=== PATIENT | male | born 1985 | race Caucasian/White ===

== ENCOUNTER 2016-03-14 00:28 | Emergency (ER) | payer MEDICAID, OTHER ==
[~2016-03-14 00:28] MED LIST: AMBI10TA PO; ATIV1TAB7 PO; CELE20TA PO; DOCU10CA PO; HYDR100C PO; LIBRIUM PO; OLAN2.5T PO; OMEP10CASR PO; PAXI20TA3 PO; PROZ40CA PO; SERO1TAB PO; TRAZ100T4 PO; VIST50CA PO; XANA1TAB2 PO; no home medications
[2016-03-14] MEDS ORDERED: IBUPROFEN 600 MG TAB As Ordered ONE (01:02)
[2016-03-14] MEDS ORDERED: PENICILLIN V POTASSIUM 500 MG TAB As Ordered ONE (01:11)
--- NOTE | 2016-03-14 01:28 | EDDOCDS ---
Nurse's Notes [facility] Name: Luis Prieto Age: 30 yrs Sex: Male : 1985 Arrival Date: 03/14/2016 Time: 00:28 Bed 6 Private MD: Diagnosis: Disturbances in tooth formation;Cracked tooth;Pain in arm, unspecified Presentation: 03/14 00:34 Presenting complaint: Patient states: left jaw and left cheek pain that started 3 days dsf ago. pt states he does have a cracked tooth. Pt thinks he has an infection there. Pt also c/o right upper arm pain while ROM. Adult Sepsis Screening: The patient does not have new or worsening altered mentation. Patient's respiratory rate is less than 22. Systolic blood pressure is greater than 100. Patient has a qSOFA score of 0- Negative Sepsis Screen. Suicide/Homicide risk assessment- the patient denies having any suicidal and/or homicidal ideations and does not present with any other emotional, behavioral or mental health complaints. Status: Patient is not a mandate retail service merchandiser or dependent. Transition of care: patient was not received from another setting of care. 00:34 Acuity: ROGERIO Level 4 dsf 00:34 Method Of Arrival: Walkin/Carried/Asstd dsf Triage Assessment: 00:38 General: Appears in no apparent distress, Behavior is appropriate for age, cooperative. dsf Pain: Location: left cheek and left jaw Pain currently is 9 out of 10 on a pain scale. Quality of pain is described as sharp, throbbing. HIV screening NA for this visit Offered previously. EENT: Reports pain in left cheek and left jaw. Historical: - Allergies: Tramadol HCl (Headaches); trazodone (agitated ); - Home Meds: 1. Klonopin 0.5 mg Oral tab 1 tab as needed (Last dose: 03/13/2016) 2. Zoloft 100 mg Oral tab 1 tab once daily (Last dose: 03/13/2016) 3. Seroquel 100 mg Oral tab 1 tab daily has not taken in a week - PMHx: Anxiety; Depression; agorophobia; - PSHx: none; - Social history: Smoking status: Patient uses tobacco products, current some day smoker. No barriers to communication noted, The patient speaks fluent Faroese, Speaks appropriately for age. - Family history: Not pertinent. - : The pt / caregiver states he / she is not on anticoagulants. Home medication list is obtained from the patient. - Exposure Risk Screening:: None identified. Screenin:25 Screening information is obtained from the patient. Fall risk: No risks identified. ko2 Assistance ADL's: requires no assistance with activities of daily living. Abuse/DV Screen: The patient / caregiver reports he/she is: not in a situation that causes fear, pain or injury. Nutritional screening: No deficits noted. Advance Directives: Currently, there is no health care proxy. There is no active DNR order. There is no living will. There is no Power of Bending Shed Worker. home support is adequate. Assessment: 00:50 General: Appears uncomfortable, Behavior is appropriate for age, cooperative. Pain: ko2 Location: face and left jaw and left cheek Pain currently is 10 out of 10 on a pain scale. Neurological: Level of Consciousness is awake, alert. Respiratory: Airway is patent Respiratory effort is even, unlabored, Respiratory pattern is regular, symmetrical. Derm: Skin is normal. Vital Signs: 00:38 BP 122 / 69; Pulse 87; Resp 20; Temp 98.7(O); Pulse Ox 98% on R/A; Weight 106.59 kg dsf (R); Height 5 ft. 11 in. (180.34 cm); Pain 9/10; 00:38 Body Mass Index 32.78 (106.59 kg, 180.34 cm) dsf Vitals: 00:38 Log In Time: March 14, 2016 at 00:30. dsf ED Course: 00:29 Patient visited by Reanna Hein Reg. hs2 00:29 Patient moved to Waiting hs2 00:35 Triage Initiated dsf 00:43 Patient moved to I4 / M4 ld5 00:45 Valeria Mckeon,LANDRY is Primary Nurse. ld5 00:45 Patient moved to Pre RCE ld5 00:45 Patient moved to 6 ld5 00:46 Fabiola Jaffe MD is Attending Physician. fg 00:46 Patient visited by Fabiola Jaffe MD. fg 00:58 [facility] is Referral Physician. fg 01:21 [facility] [place] [place] Payment Agreement was scanned into [employer] and attached to record. pm4 01:26 The patient / caregiver is instructed regarding the plan of care and ED course. ko2 01:26 No IV's were initiated during this patient's visit. No procedures done that require ko2 assistance. Administered Medications: 01:00 Drug: Penicillin VK 500 mg [penicillin V potassium 250 mg tablet (2 tabs)] Route: PO; ko2 01:00 Drug: Ibuprofen 600 mg [ibuprofen 600 mg tablet (1 tabs)] Route: PO; ko2 Order Results: There are currently no results for this order. Outcome: 00:59 Discharge ordered by Provider. fg 01:26 Discharge Assessment: Patient awake, alert and oriented x 3. No cognitive and/or ko2 functional deficits noted. Patient verbalized understanding of disposition instructions. patient administered narcotics - no. The following High Risk Discharge criteria are identified: None. Discharged to home ambulatory, via medicaid cab. Condition: stable. Discharge instructions given to patient, Instructed on discharge instructions, follow up and referral plans. medication usage, Demonstrated understanding of instructions, medications, Pt was receptive of discharge instructions/ teaching. Prescriptions given X 2. No special radiology studies were completed. Property sent home with patient. 01:27 Patient left the ED. ko2 Signatures: Emily Boogie,RN RN ld5 Nasreen ContrerasRN RN Valeria StoutRN RN ko2 Fabiola Jaffe MD MD fg Stanton, Hillary, Reg Reg hs2 Adam Friedman, Reg Reg pm4 MTDD
--- NOTE | 2016-03-14 01:28 | EDDOCDS ---
Physician Documentation [facility] Name: Luis Prieto Age: 30 yrs Sex: Male : 1985 Arrival Date: 03/14/2016 Time: 00:28 Bed 6 Private MD: Disposition: 03/14/16 00:59 Discharged to Home/Self Care. Impression: Disturbances in tooth formation, Cracked tooth, Pain in arm, unspecified. - Condition is Stable. - Prescriptions for Ibuprofen 600 mg Oral Tablet - take 1 tablet by ORAL route every 6-8 hours As needed take with food; 20 tablet. penicillin V potassium 500 mg Oral Tablet - take 1 tablet by ORAL route 4 times per day for 10 days; 40 tablet. - Medication Reconciliation, Local Pharmacy Hours form. - [facility] up: [facility]; When: Call to arrange an appointment; Reason: Continuance of care. - Problem is new. - Symptoms have improved. Historical: - Allergies: Tramadol HCl (Headaches); trazodone (agitated ); - Home Meds: 1. Klonopin 0.5 mg Oral tab 1 tab as needed (Last dose: 03/13/2016) 2. Zoloft 100 mg Oral tab 1 tab once daily (Last dose: 03/13/2016) 3. Seroquel 100 mg Oral tab 1 tab daily has not taken in a week - PMHx: Anxiety; Depression; agorophobia; - PSHx: none; - Social history: Smoking status: Patient uses tobacco products, current some day smoker. No barriers to communication noted, The patient speaks fluent Latvian, Speaks appropriately for age. - Family history: Not pertinent. - : The pt / caregiver states he / she is not on anticoagulants. Home medication list is obtained from the patient. - Exposure Risk Screening:: None identified. Vital Signs: 03/14 00:38 BP 122 / 69; Pulse 87; Resp 20; Temp 98.7(O); Pulse Ox 98% on R/A; Weight 106.59 kg / dsf 234.99 lbs (R); Height 5 ft. 11 in. (180.34 cm); Pain 9/10; 00:38 Body Mass Index 32.78 (106.59 kg, 180.34 cm) dsf MDM: 00:58 Penicillin VK 500 mg PO once ordered. fg 00:58 Ibuprofen 600 mg PO once ordered. fg 01:11 Financial registration complete. pm4 01:21 [facility] Payment Agreement was scanned into [employer] and attached to record. pm4 Administered Medications: 01:00 Drug: Penicillin VK 500 mg [penicillin V potassium 250 mg tablet (2 tabs)] Route: PO; ko2 01:00 Drug: Ibuprofen 600 mg [ibuprofen 600 mg tablet (1 tabs)] Route: PO; ko2 Signatures: Nasreen Contreras RN RN dsf Valeria Mckeon RN RN ko2 Fabiola Jaffe MD MD fg Adam Friedman, Reg Reg pm4 The chart was reviewed and I authenticate all verbal orders and agree with the evaluation and treatment provided.Attachments: 01:21 [facility] Payment Agreement pm4 MTDD
[2016-03-14] MEDS ORDERED: MORPHINE 2 MG/ML 1ML SYRINGE As Ordered ONE (03:42)
--- NOTE | 2016-03-16 02:28 | EDDOCDS ---
Physician Documentation [facility] Name: Luis Prieto Age: 30 yrs Sex: Male : 1985 Arrival Date: 03/14/2016 Time: 00:28 Bed 6 Private MD: Disposition: 03/14/16 00:59 Discharged to Home/Self Care. Impression: Disturbances in tooth formation, Cracked tooth, Pain in arm, unspecified. - Condition is Stable. - Prescriptions for Ibuprofen 600 mg Oral Tablet - take 1 tablet by ORAL route every 6-8 hours As needed take with food; 20 tablet. penicillin V potassium 500 mg Oral Tablet - take 1 tablet by ORAL route 4 times per day for 10 days; 40 tablet. - Medication Reconciliation, Local Pharmacy Hours form. - Follow up: [facility]; When: Call to arrange an appointment; Reason: Continuance of care. - Problem is new. - Symptoms have improved. Historical: - Allergies: Tramadol HCl (Headaches); trazodone (agitated ); - Home Meds: 1. Klonopin 0.5 mg Oral tab 1 tab as needed (Last dose: 03/13/2016) 2. Zoloft 100 mg Oral tab 1 tab once daily (Last dose: 03/13/2016) 3. Seroquel 100 mg Oral tab 1 tab daily has not taken in a week - PMHx: Anxiety; Depression; agorophobia; - PSHx: none; - Social history: Smoking status: Patient uses tobacco products, current some day smoker. No barriers to communication noted, The patient speaks fluent Faroese, Speaks appropriately for age. - Family history: Not pertinent. - : The pt / caregiver states he / she is not on anticoagulants. Home medication list is obtained from the patient. - Exposure Risk Screening:: None identified. Vital Signs: 03/14 00:38 BP 122 / 69; Pulse 87; Resp 20; Temp 98.7(O); Pulse Ox 98% on R/A; Weight 106.59 kg / dsf 234.99 lbs (R); Height 5 ft. 11 in. (180.34 cm); Pain 9/10; 00:38 Body Mass Index 32.78 (106.59 kg, 180.34 cm) dsf MDM: 00:58 Penicillin VK 500 mg PO once ordered. fg 00:58 Ibuprofen 600 mg PO once ordered. fg 01:11 Financial registration complete. pm4 01:21 [facility] Payment Agreement was scanned into [employer] and attached to record. pm4 03/15 12:41 T-Sheet-- Draft Copy was scanned into [employer] and attached to record. gb Administered Medications: 03/14 01:00 Drug: Penicillin VK 500 mg [penicillin V potassium 250 mg tablet (2 tabs)] Route: PO; ko2 01:00 Drug: Ibuprofen 600 mg [ibuprofen 600 mg tablet (1 tabs)] Route: PO; ko2 Signatures: Ada Kidd, Reg Reg gb Nasreen ContrerasRN RN dsf Valeria Mckeon RN RN ko2 Fabiola Jaffe MD MD Adam Friedman, Reg Reg pm4 The chart was reviewed and I authenticate all verbal orders and agree with the evaluation and treatment provided.Attachments: 01:21 [facility] Payment Agreement pm4 03/15 12:41 T-Sheet-- Draft Copy gb Chart Complete MTDD
--- NOTE | 2016-03-16 02:28 | EDDOCDS ---
Nurse's Notes [facility] Name: Luis Prieto Age: 30 yrs Sex: Male : 1985 Arrival Date: 03/14/2016 Time: 00:28 Bed 6 Private MD: Diagnosis: Disturbances in tooth formation;Cracked tooth;Pain in arm, unspecified Presentation: 03/14 00:34 Presenting complaint: Patient states: left jaw and left cheek pain that started 3 days dsf ago. pt states he does have a cracked tooth. Pt thinks he has an infection there. Pt also c/o right upper arm pain while ROM. Adult Sepsis Screening: The patient does not have new or worsening altered mentation. Patient's respiratory rate is less than 22. Systolic blood pressure is greater than 100. Patient has a qSOFA score of 0- Negative Sepsis Screen. Suicide/Homicide risk assessment- the patient denies having any suicidal and/or homicidal ideations and does not present with any other emotional, behavioral or mental health complaints. Status: Patient is not a manager support services or dependent. Transition of care: patient was not received from another setting of care. 00:34 Acuity: ROGERIO Level 4 dsf 00:34 Method Of Arrival: Walkin/Carried/Asstd dsf Triage Assessment: 00:38 General: Appears in no apparent distress, Behavior is appropriate for age, cooperative. dsf Pain: Location: left cheek and left jaw Pain currently is 9 out of 10 on a pain scale. Quality of pain is described as sharp, throbbing. HIV screening NA for this visit Offered previously. EENT: Reports pain in left cheek and left jaw. Historical: - Allergies: Tramadol HCl (Headaches); trazodone (agitated ); - Home Meds: 1. Klonopin 0.5 mg Oral tab 1 tab as needed (Last dose: 03/13/2016) 2. Zoloft 100 mg Oral tab 1 tab once daily (Last dose: 03/13/2016) 3. Seroquel 100 mg Oral tab 1 tab daily has not taken in a week - PMHx: Anxiety; Depression; agorophobia; - PSHx: none; - Social history: Smoking status: Patient uses tobacco products, current some day smoker. No barriers to communication noted, The patient speaks fluent Burmese, Speaks appropriately for age. - Family history: Not pertinent. - : The pt / caregiver states he / she is not on anticoagulants. Home medication list is obtained from the patient. - Exposure Risk Screening:: None identified. Screenin:25 Screening information is obtained from the patient. Fall risk: No risks identified. ko2 Assistance ADL's: requires no assistance with activities of daily living. Abuse/DV Screen: The patient / caregiver reports he/she is: not in a situation that causes fear, pain or injury. Nutritional screening: No deficits noted. Advance Directives: Currently, there is no health care proxy. There is no active DNR order. There is no living will. There is no Power of Die Mounter. home support is adequate. Assessment: 00:50 General: Appears uncomfortable, Behavior is appropriate for age, cooperative. Pain: ko2 Location: face and left jaw and left cheek Pain currently is 10 out of 10 on a pain scale. Neurological: Level of Consciousness is awake, alert. Respiratory: Airway is patent Respiratory effort is even, unlabored, Respiratory pattern is regular, symmetrical. Derm: Skin is normal. Vital Signs: 00:38 BP 122 / 69; Pulse 87; Resp 20; Temp 98.7(O); Pulse Ox 98% on R/A; Weight 106.59 kg dsf (R); Height 5 ft. 11 in. (180.34 cm); Pain 9/10; 00:38 Body Mass Index 32.78 (106.59 kg, 180.34 cm) dsf Vitals: 00:38 Log In Time: March 14, 2016 at 00:30. dsf ED Course: 00:29 Patient visited by Reanna Hein Reg. hs2 00:29 Patient moved to Waiting hs2 00:35 Triage Initiated dsf 00:43 Patient moved to I4 / M4 ld5 00:45 Valeria Mckeon,LANDRY is Primary Nurse. ld5 00:45 Patient moved to Pre RCE ld5 00:45 Patient moved to 6 ld5 00:46 Fabiola Jaffe MD is Attending Physician. fg 00:46 Patient visited by Fabiola Jaffe MD. fg 00:58 [facility] is Referral Physician. fg 01:21 [facility] [place] Payment Agreement was scanned into [employer] and attached to record. pm4 01:26 The patient / caregiver is instructed regarding the plan of care and ED course. ko2 01:26 No IV's were initiated during this patient's visit. No procedures done that require ko2 assistance. 03/15 12:41 T-Sheet-- Draft Copy was scanned into [employer] and attached to record. gb Administered Medications: 03/14 01:00 Drug: Penicillin VK 500 mg [penicillin V potassium 250 mg tablet (2 tabs)] Route: PO; ko2 01:00 Drug: Ibuprofen 600 mg [ibuprofen 600 mg tablet (1 tabs)] Route: PO; ko2 Order Results: There are currently no results for this order. Outcome: 00:59 Discharge ordered by Provider. fg 01:26 Discharge Assessment: Patient awake, alert and oriented x 3. No cognitive and/or ko2 functional deficits noted. Patient verbalized understanding of disposition instructions. patient administered narcotics - no. The following High Risk Discharge criteria are identified: None. Discharged to home ambulatory, via medicaid cab. Condition: stable. Discharge instructions given to patient, Instructed on discharge instructions, follow up and referral plans. medication usage, Demonstrated understanding of instructions, medications, Pt was receptive of discharge instructions/ teaching. Prescriptions given X 2. No special radiology studies were completed. Property sent home with patient. 01:27 Patient left the ED. ko2 Signatures: Ada Kidd, Reg Reg gb Emily Boogie,RN RN ld5 Nasreen Contreras,ALNDRY RN Valeria Stout RN RN ko2 Fabiola Jaffe MD MD Reanna Hein, Reg Reg hs2 Adam Friedman, Reg Reg pm4 Chart Complete MTDD
--- NOTE | 2016-03-16 02:28 | EDDOCDS ---
Physician Documentation [facility] Name: Luis Prieto Age: 30 yrs Sex: Male : 1985 Arrival Date: 03/14/2016 Time: 00:28 Bed 6 Private MD: Disposition: 03/14/16 00:59 Discharged to Home/Self Care. Impression: Disturbances in tooth formation, Cracked tooth, Pain in arm, unspecified. - Condition is Stable. - Prescriptions for Ibuprofen 600 mg Oral Tablet - take 1 tablet by ORAL route every 6-8 hours As needed take with food; 20 tablet. penicillin V potassium 500 mg Oral Tablet - take 1 tablet by ORAL route 4 times per day for 10 days; 40 tablet. - Medication Reconciliation, Local Pharmacy Hours form. - Follow up: [facility]; When: Call to arrange an appointment; Reason: Continuance of care. - Problem is new. - Symptoms have improved. Historical: - Allergies: Tramadol HCl (Headaches); trazodone (agitated ); - Home Meds: 1. Klonopin 0.5 mg Oral tab 1 tab as needed (Last dose: 03/13/2016) 2. Zoloft 100 mg Oral tab 1 tab once daily (Last dose: 03/13/2016) 3. Seroquel 100 mg Oral tab 1 tab daily has not taken in a week - PMHx: Anxiety; Depression; agorophobia; - PSHx: none; - Social history: Smoking status: Patient uses tobacco products, current some day smoker. No barriers to communication noted, The patient speaks fluent Czech, Speaks appropriately for age. - Family history: Not pertinent. - : The pt / caregiver states he / she is not on anticoagulants. Home medication list is obtained from the patient. - Exposure Risk Screening:: None identified. Vital Signs: 03/14 00:38 BP 122 / 69; Pulse 87; Resp 20; Temp 98.7(O); Pulse Ox 98% on R/A; Weight 106.59 kg / dsf 234.99 lbs (R); Height 5 ft. 11 in. (180.34 cm); Pain 9/10; 00:38 Body Mass Index 32.78 (106.59 kg, 180.34 cm) dsf MDM: 00:58 Penicillin VK 500 mg PO once ordered. fg 00:58 Ibuprofen 600 mg PO once ordered. fg 01:11 Financial registration complete. pm4 01:21 [facility] Payment Agreement was scanned into [employer] and attached to record. pm4 03/15 12:41 T-Sheet-- Draft Copy was scanned into [employer] and attached to record. gb Administered Medications: 03/14 01:00 Drug: Penicillin VK 500 mg [penicillin V potassium 250 mg tablet (2 tabs)] Route: PO; ko2 01:00 Drug: Ibuprofen 600 mg [ibuprofen 600 mg tablet (1 tabs)] Route: PO; ko2 Signatures: Ada Kidd, Reg Reg gb Nasreen ContrerasRN RN dsf Valeria Mckeon RN RN ko2 Fabiola Jaffe MD MD Adam Friedman, Reg Reg pm4 The chart was reviewed and I authenticate all verbal orders and agree with the evaluation and treatment provided.Attachments: 01:21 [facility] Payment Agreement pm4 03/15 12:41 T-Sheet-- Draft Copy gb Chart Complete MTDD
== END 2016-03-14 01:27 | disposition home or self-care (01) ==
LOC: M ED 00:28
DX: K03.81 Cracked tooth (principal); K08.9 Disorder of teeth and supporting structures, unspecified; F41.9 Anxiety disorder, unspecified; F32.9 Major depressive disorder, single episode, unspecified; F40.00 Agoraphobia, unspecified; F17.210 Nicotine dependence, cigarettes, uncomplicated; Z79.899 Other long term (current) drug therapy; Z88.8 Allergy status to other drugs, medicaments and biological substances

== ENCOUNTER 2016-04-02 20:04 | Emergency (ER) | payer OTHER ==
--- NOTE | 2016-04-02 20:50 | REPUSA ---
Clinical history: Pain. Findings: Real-time ultrasound imaging of the testicles and scrotum was performed. The right testicle measures 3.9 x 2.4 x 3.2 cm. The left testicle measures 3.9 x 2.5 I 3.1 cm. The testicles demonstrat e normal echo texture and echogenicity. Normal color Doppler flow and arterial waveforms are seen uday aterally. No fluid collections are seen. Impression: Unremarkable ultrasound examination of the testicles.
[2016-04-02] MEDS ORDERED: NAPROXEN 250 MG TAB As Ordered ONE (21:44)
[2016-04-02] MEDS ORDERED: MORPHINE 4 MG/ML 1ML SYRINGE As Ordered ONE (22:29)
--- NOTE | 2016-04-02 23:40 | REPUSA ---
CT of the abdomen and pelvis without contrast Clinical statement: Pain. Technique: Multiple axial CT images were obtained from the base of the lungs to the floor of the pelv is utilizing 5 mm axial slices without administration of contrast. Coronal and sagittal reconstructio ns were also obtained. Comparison: 12/09/2012. Findings: Chest: The visualized lung bases are clear. Abdomen: The kidneys are normal in size bilaterally. There is no evidence of hydronephrosis or nephro lithiasis. The liver, spleen, pancreas, gallbladder and adrenal glands are unremarkable. The aorta de monstrates normal caliber and contour. There is no abdominal lymphadenopathy or ascites. Pelvis: The bowel is unremarkable, with no obstructive or inflammatory changes. The appendix is juan l. The urinary bladder is within normal limits. There is no pelvic lymphadenopathy or ascites. The ot her pelvic structures appear unremarkable. Bones: There are no suspicious osseous abnormalities seen. Impression: Unremarkable CT examination of the abdomen and pelvis.
--- NOTE | 2016-04-03 00:15 | EDDOCDS ---
Nurse's Notes [facility] Name: Luis Prieto Age: 30 yrs Sex: Male : 1985 Arrival Date: 04/02/2016 Time: 20:04 Bed I4 / M4 Private MD: Marcela Harris S Diagnosis: Pelvic and perineal pain-Left sided;Pain in left foot-plantar faciitis Presentation: 04/02 20:12 Presenting complaint: Patient states: Testicular pain for 2 weeks. noticed swelling 4 rs3 days ago. pain getting worse progressively. some relief with heat application. L ankle pain for 2 days. no known injury. Adult Sepsis Screening: The patient does not have new or worsening altered mentation. Patient's respiratory rate is less than 22. Systolic blood pressure is greater than 100. Patient has a qSOFA score of 0- Negative Sepsis Screen. Suicide/Homicide risk assessment- the patient denies having any suicidal and/or homicidal ideations and does not present with any other emotional, behavioral or mental health complaints. Status: Patient is not a 911 emergency services dispatcher or dependent. Transition of care: patient was not received from another setting of care. 20:12 Acuity: ROGERIO Level 3 rs3 20:12 Method Of Arrival: Walkin/Carried/Asstd rs3 Triage Assessment: 20:16 General: Appears in no apparent distress. Pain: Location: pelvis. Pt Declines HIV rs3 testing. Historical: - Allergies: Tramadol HCl (Headaches); Trazodone (agitated); - Home Meds: 1. Klonopin 0.5 mg Oral tab 1 tab as needed 2. Geodon 20 mg oral cap 1 cap nightly - PMHx: agorophobia; Anxiety; Depression; - PSHx: none; - Social history: Smoking status: Patient states former smoker of tobacco. No barriers to communication noted, The patient speaks fluent Tajik. - Family history: Not pertinent. - : The pt / caregiver states he / she is not on anticoagulants. Home medication list is obtained from. - Exposure Risk Screening:: None identified. Screenin:52 Screening information is obtained from the patient. Fall risk: No risks identified. lf1 Assistance ADL's: requires no assistance with activities of daily living. Nutritional screening: No deficits noted. Advance Directives: Currently, there is no health care proxy. home support is adequate. 04/03 00:14 Abuse/DV Screen: The patient / caregiver reports he/she is: not in a situation that mf4 causes fear, pain or injury. Assessment: 04/02 21:46 General: Appears in no apparent distress, comfortable, Behavior is appropriate for age, nn1 cooperative. Pain: Location: right lower quadrant and left lower quadrant and pelvis Pain currently is 8 out of 10 on a pain scale. Neurological: Level of Consciousness is awake, alert, obeys commands, Oriented to person, place, time. Respiratory: Airway is patent Respiratory effort is even, unlabored, Respiratory pattern is regular, symmetrical. GI: Reports lower abdominal pain. Derm: Skin is pink, warm & dry. 21:54 General: Urine resent to lab. . nn1 22:52 Adult Sepsis Screening: The patient does not have new or worsening altered mentation. lf1 Patient's respiratory rate is less than 22. Systolic blood pressure is greater than 100. Patient has a qSOFA score of 0- Negative Sepsis Screen. General: Appears uncomfortable, Behavior is cooperative. Pain: Location: left lower quadrant Pain currently is 8 out of 10 on a pain scale. Neurological: Level of Consciousness is awake, alert. Cardiovascular: Chest pain is denied. Respiratory: Respiratory effort is even, unlabored. GI: Reports lower abdominal pain. Derm: Skin is pink, warm & dry. 22:58 General:. lf1 Vital Signs: 19:24 BP 126 / 75; Pulse 96; Resp 18; Temp 98.7(O); Pulse Ox 98% on R/A; Weight 105.51 kg kb5 (M); Height 5 ft. 11 in. (180.34 cm) (R); Pain 9/10; 22:58 BP 131 / 85; Pulse 88; Resp 18; Temp 97.0(O); Pulse Ox 97% on R/A; Pain 8/10; lf1 04/03 00:13 BP 147 / 97; Pulse 86; Resp 16; Temp 98.4(O); mf4 04/02 19:24 Body Mass Index 32.44 (105.51 kg, 180.34 cm) kb5 ED Course: 04/02 20:06 Patient visited by Erik Ku PCA. kb5 20:06 Marcela Harris is Private Physician. kb5 20:06 Patient moved to Waiting kb5 20:09 Patient visited by Erik Ku PCA. kb5 20:14 Triage Initiated rs3 20:16 Patient moved to Pre RCE rs3 20:46 UA Sent. ar3 21:11 Scrotal, US Returned. EDMS 21:16 Patient moved to Triage 1 jmb 21:27 Bhargav Em PA-C is PHCP. cc10 21:27 Emilio Garcia DO is Attending Physician. cc10 21:28 GC & Chlamydia Amplification Sent. jmb 21:34 Patient visited by Bhargav Em PA-C. cc10 21:34 Patient visited by Bhargav Em PA-C. cc10 21:55 Patient moved to TR1 jmb 22:09 Patient moved to PR2 / 26 jmb 22:27 Patient moved to I4 / M4 jmb 22:52 The patient / caregiver is instructed regarding the plan of care and ED course. Patient lf1 has correct armband on for positive identification. Placed in gown. Call light in reach. 22:54 Patient visited by Audelia Thomas,RN. lf1 23:01 Patient visited by Audelia Thomas,RN. lf1 23:06 [facility] Payment Agreement was scanned into [employer] and attached to record. gjb 23:52 Marcela Harris is Referral Physician. cc10 23:55 CT ABD & PELVIS: No Contrast Returned. EDMS 04/03 00:14 No IV's were initiated during this patient's visit. No procedures done that require 4 assistance. Administered Medications: 04/02 21:46 Drug: Naproxen 500 mg [naproxen 250 mg tablet (2 tabs)] Route: PO; nn1 22:32 Drug: morphine 4 mg [morphine 4 mg/mL intravenous cartridge (1 mL)] Route: IM; Site: [facility] left deltoid; Order Results: Lab Order: UA; SPEC'M 04/02/16 20:46 Test: APPEARANCE, URINE; Value: CLEAR; Range: CLEAR; Status: F Test: COLOR, URINE; Value: YELLOW; Range: YELLOW; Status: F Test: PH,URINE; Value: 6.0; Range: 5.0-9.0; Units: UNITS; Status: F Test: SPECIFIC GRAVITY URINE AUTO; Value: 1.026; Range: 1.002-1.035; Status: F Test: PROTEIN, URINE AUTO; Value: NEGATIVE; Range: NEGATIVE; Units: mg/dL; Status: F Test: GLUCOSE, URINE (UA) AUTO; Value: NEGATIVE; Range: NEGATIVE; Units: mg/dL; Status: F Test: KETONE, URINE AUTO; Value: NEGATIVE; Range: NEGATIVE; Units: mg/dL; Status: F Test: UROBILINOGEN, URINE AUTO; Value: 0.2; Range: 0.0-2.0; Units: mg/dL; Status: F Test: BILIRUBIN, URINE AUTO; Value: NEGATIVE; Range: NEGATIVE; Status: F Test: NITRITE, URINE AUTO; Value: NEGATIVE; Range: NEGATIVE; Status: F Test: LEUKOCYTE ESTERASE, URINE AUTO; Value: NEGATIVE; Range: NEGATIVE; Status: F Test: BLOOD, URINE BLOOD; Value: 1+; Range: NEGATIVE; Abnormal: Above high normal; Status: F Test: WBC, URINE AUTO; Value: 0; Range: 0-3; Units: /HPF; Status: F Test: RBC, URINE AUTO; Value: 2; Range: 0-3; Units: /HPF; Status: F Test: BACTERIA, URINE AUTO; Value: NEGATIVE; Range: NEGATIVE; Status: F Test: SQUAMOUS EPITHELIAL CELL UR AU; Value: 0; Range: 0-6; Units: /HPF; Status: F Test: MUCUS, URINE; Value: SMALL; Range: NEGATIVE; Status: F Test: HYALINE CAST, URINE AUTO; Value: 0; Range: 0-1; Units: /LPF; Status: F Radiology Order: Scrotal, US Test: Scrotal, US REASON FOR EXAMINATION: swelling; ; Clinical history: Pain.; Findings: Real-time ultrasound imaging of the testicles and scrotum was performed. The right testicle; measures 3.9 x 2.4 x 3.2 cm. The left testicle measures 3.9 x 2.5 I 3.1 cm. The testicles demonstrat; e normal echo texture and echogenicity. Normal color Doppler flow and arterial waveforms are seen uday; aterally. No fluid collections are seen.; Impression: Unremarkable ultrasound examination of the testicles.; ; Radiology Order: CT ABD & PELVIS: No Contrast Test: CT ABD & PELVIS: No Contrast REASON FOR EXAMINATION: Renal colic; ; CT of the abdomen and pelvis without contrast; Clinical statement: Pain.; Technique: Multiple axial CT images were obtained from the base of the lungs to the floor of the pelv; is utilizing 5 mm axial slices without administration of contrast. Coronal and sagittal reconstructio; ns were also obtained.; Comparison: 12/09/2012.; Findings:; Chest: The visualized lung bases are clear.; Abdomen: The kidneys are normal in size bilaterally. There is no evidence of hydronephrosis or nephro; lithiasis. The liver, spleen, pancreas, gallbladder and adrenal glands are unremarkable. The aorta de; monstrates normal caliber and contour. There is no abdominal lymphadenopathy or ascites.; Pelvis: The bowel is unremarkable, with no obstructive or inflammatory changes. The appendix is juan; l. The urinary bladder is within normal limits. There is no pelvic lymphadenopathy or ascites. The ot; her pelvic structures appear unremarkable.; Bones: There are no suspicious osseous abnormalities seen.; Impression: Unremarkable CT examination of the abdomen and pelvis.; ; Outcome: 23:52 Discharge ordered by Provider. cc10 04/03 00:14 Discharge Assessment: Patient awake, alert and oriented x 3. No cognitive and/or mf4 functional deficits noted. Patient verbalized understanding of disposition instructions. patient administered narcotics - no. The following High Risk Discharge criteria are identified: None. Discharged to home ambulatory. Condition: stable. Discharge instructions given to patient, Instructed on discharge instructions, follow up and referral plans. medication usage, Demonstrated understanding of instructions, Pt was receptive of discharge instructions/ teaching. Prescriptions given X 1, efiled. CT Study completed. Property sent home with patient. 00:15 Patient left the ED. mf4 Signatures: Dispatcher [employer] EDMS Erik Ku, RESIDENTIAL SALES MANAGER RESIDENTIAL SALES MANAGER kb5 Audelia ThomasRN RN lf1 Aleshia AnguianoRN RN rs3 Christina Weiss, RESIDENTIAL SALES MANAGER RESIDENTIAL SALES MANAGER ar3 Garland Enamorado,TRANSMISSION SUPERINTENDENT TRANSMISSION SUPERINTENDENT mf4 Luis TaRN RN Goran Alemann, ADRIANA PAKrysC cc10 Layla Evans,RN RN nn1 Angi Li MTDD
--- NOTE | 2016-04-03 00:15 | EDDOCDS ---
Physician Documentation [facility] Name: Luis Prieto Age: 30 yrs Sex: Male : 1985 Arrival Date: 04/02/2016 Time: 20:04 Bed I4 / M4 Private MD: Marcela Harris S Disposition: 04/02/16 23:52 Discharged to Home/Self Care. Impression: Pelvic and perineal pain - Left sided, Pain in left foot - plantar faciitis. - Condition is Stable. - Discharge Instructions: Plantar Fasciitis, Pelvic Pain, Male. - Prescriptions for Naprosyn 500 mg Oral Tablet - take 1 tablet by ORAL route 2 times per day take with food; 30 tablet. - Medication Reconciliation form. - Follow up: Marcela Harris; When: Call to arrange an appointment; Reason: Wound/Symptom Recheck, Recheck today's complaints, Continuance of care. - Problem is an ongoing problem. - Symptoms have improved. Historical: - Allergies: Tramadol HCl (Headaches); Trazodone (agitated); - Home Meds: 1. Klonopin 0.5 mg Oral tab 1 tab as needed 2. Geodon 20 mg oral cap 1 cap nightly - PMHx: agorophobia; Anxiety; Depression; - PSHx: none; - Social history: Smoking status: Patient states former smoker of tobacco. No barriers to communication noted, The patient speaks fluent Albanian. - Family history: Not pertinent. - : The pt / caregiver states he / she is not on anticoagulants. Home medication list is obtained from. - Exposure Risk Screening:: None identified. Vital Signs: 04/02 19:24 BP 126 / 75; Pulse 96; Resp 18; Temp 98.7(O); Pulse Ox 98% on R/A; Weight 105.51 kg / kb5 232.61 lbs (M); Height 5 ft. 11 in. (180.34 cm) (R); Pain 9/10; 22:58 BP 131 / 85; Pulse 88; Resp 18; Temp 97.0(O); Pulse Ox 97% on R/A; Pain 8/10; lf1 04/03 00:13 BP 147 / 97; Pulse 86; Resp 16; Temp 98.4(O); mf4 04/02 19:24 Body Mass Index 32.44 (105.51 kg, 180.34 cm) kb5 MDM: 04/02 20:19 Scrotal, US Ordered. EDMS 20:24 DUPLEX SCAN LIMITED (DOPPLER) Ordered. EDMS 20:29 UA Ordered. EDMS 21:28 GC & Chlamydia Amplification Ordered. EDMS 21:41 Naproxen 500 mg PO once; administer with food or milk ordered. cc10 21:42 Scrotal, US Reviewed. cc10 22:02 UA Reviewed. cc10 22:10 Financial registration complete. gjb 22:24 morphine 4 mg IM once ordered. cc10 22:26 CT ABD & PELVIS: No Contrast Ordered. EDMS 23:06 [facility] Payment Agreement was scanned into [employer] and attached to record. gjb Administered Medications: 21:46 Drug: Naproxen 500 mg [naproxen 250 mg tablet (2 tabs)] Route: PO; nn1 22:32 Drug: morphine 4 mg [morphine 4 mg/mL intravenous cartridge (1 mL)] Route: IM; Site: b left deltoid; Signatures: Dispatcher [employer] EDMS Aleshia Anguiano,RN RN rs3 Garland Enamorado,HAND SPINNER HAND SPINNER mf4 Bhargav Em, PA-C PA-C cc10 Angi Li Joshua RN jmb Layla Evans RN nn1 The chart was reviewed and I authenticate all verbal orders and agree with the evaluation and treatment provided.Attachments: 23:06 [facility] Payment Agreement gjb MTDD
--- NOTE | 2016-04-05 01:15 | EDDOCDS ---
Physician Documentation [facility] Name: Luis Prieto Age: 30 yrs Sex: Male : 1985 Arrival Date: 04/02/2016 Time: 20:04 Bed I4 / M4 Private MD: Marcela Harris S Disposition: 04/02/16 23:52 Discharged to Home/Self Care. Impression: Pelvic and perineal pain - Left sided, Pain in left foot - plantar faciitis. - Condition is Stable. - Discharge Instructions: Plantar Fasciitis, Pelvic Pain, Male. - Prescriptions for Naprosyn 500 mg Oral Tablet - take 1 tablet by ORAL route 2 times per day take with food; 30 tablet. - Medication Reconciliation form. - Follow up: Marcela Harris; When: Call to arrange an appointment; Reason: Wound/Symptom Recheck, Recheck today's complaints, Continuance of care. - Problem is an ongoing problem. - Symptoms have improved. Historical: - Allergies: Tramadol HCl (Headaches); Trazodone (agitated); - Home Meds: 1. Klonopin 0.5 mg Oral tab 1 tab as needed 2. Geodon 20 mg oral cap 1 cap nightly - PMHx: agorophobia; Anxiety; Depression; - PSHx: none; - Social history: Smoking status: Patient states former smoker of tobacco. No barriers to communication noted, The patient speaks fluent Maltese. - Family history: Not pertinent. - : The pt / caregiver states he / she is not on anticoagulants. Home medication list is obtained from. - Exposure Risk Screening:: None identified. Vital Signs: 04/02 19:24 BP 126 / 75; Pulse 96; Resp 18; Temp 98.7(O); Pulse Ox 98% on R/A; Weight 105.51 kg / kb5 232.61 lbs (M); Height 5 ft. 11 in. (180.34 cm) (R); Pain 9/10; 22:58 BP 131 / 85; Pulse 88; Resp 18; Temp 97.0(O); Pulse Ox 97% on R/A; Pain 8/10; lf1 04/03 00:13 BP 147 / 97; Pulse 86; Resp 16; Temp 98.4(O); mf4 04/02 19:24 Body Mass Index 32.44 (105.51 kg, 180.34 cm) kb5 MDM: 04/02 20:19 Scrotal, US Ordered. EDMS 20:24 DUPLEX SCAN LIMITED (DOPPLER) Ordered. EDMS 20:29 UA Ordered. EDMS 21:28 GC & Chlamydia Amplification Ordered. EDMS 21:41 Naproxen 500 mg PO once; administer with food or milk ordered. cc10 21:42 Scrotal, US Reviewed. cc10 22:02 UA Reviewed. cc10 22:10 Financial registration complete. gjb 22:24 morphine 4 mg IM once ordered. cc10 22:26 CT ABD & PELVIS: No Contrast Ordered. EDMS 23:06 [facility] [place] Agreement was scanned into [employer] and attached to record. gjb 04/03 12:00 T-Sheet-- Draft Copy was scanned into [employer] and attached to record. gb 12:00 Radiology Report was scanned into [employer] and attached to record. gb Administered Medications: 04/02 21:46 Drug: Naproxen 500 mg [naproxen 250 mg tablet (2 tabs)] Route: PO; nn1 22:32 Drug: morphine 4 mg [morphine 4 mg/mL intravenous cartridge (1 mL)] Route: IM; Site: [facility] left deltoid; Signatures: Dispatcher [employer] EDMS Ada Kidd, Reg Reg Aleshia Cardenas,RN RN rs3 Garland Enamorado,DAMPENER DAMPENER mf4 Bhargav Em, PAKrysC PA-C cc10 Angi Li gjLuis Calvillo RN, Nikkole RN nn1 The chart was reviewed and I authenticate all verbal orders and agree with the evaluation and treatment provided.Attachments: 23:06 [facility] Payment Agreement b 04/03 12:00 T-Sheet-- Draft Copy gb Chart Complete MTDD
--- NOTE | 2016-04-05 01:15 | EDDOCDS ---
Physician Documentation [facility] Name: Luis Prieto Age: 30 yrs Sex: Male : 1985 Arrival Date: 04/02/2016 Time: 20:04 Bed I4 / M4 Private MD: Marcela Harris S Disposition: 04/02/16 23:52 Discharged to Home/Self Care. Impression: Pelvic and perineal pain - Left sided, Pain in left foot - plantar faciitis. - Condition is Stable. - Discharge Instructions: Plantar Fasciitis, Pelvic Pain, Male. - Prescriptions for Naprosyn 500 mg Oral Tablet - take 1 tablet by ORAL route 2 times per day take with food; 30 tablet. - Medication Reconciliation form. - Follow up: Marcela Harris; When: Call to arrange an appointment; Reason: Wound/Symptom Recheck, Recheck today's complaints, Continuance of care. - Problem is an ongoing problem. - Symptoms have improved. Historical: - Allergies: Tramadol HCl (Headaches); Trazodone (agitated); - Home Meds: 1. Klonopin 0.5 mg Oral tab 1 tab as needed 2. Geodon 20 mg oral cap 1 cap nightly - PMHx: agorophobia; Anxiety; Depression; - PSHx: none; - Social history: Smoking status: Patient states former smoker of tobacco. No barriers to communication noted, The patient speaks fluent [place] Rican. - Family history: Not pertinent. - : The pt / caregiver states he / she is not on anticoagulants. Home medication list is obtained from. - Exposure Risk Screening:: None identified. Vital Signs: 04/02 19:24 BP 126 / 75; Pulse 96; Resp 18; Temp 98.7(O); Pulse Ox 98% on R/A; Weight 105.51 kg / kb5 232.61 lbs (M); Height 5 ft. 11 in. (180.34 cm) (R); Pain 9/10; 22:58 BP 131 / 85; Pulse 88; Resp 18; Temp 97.0(O); Pulse Ox 97% on R/A; Pain 8/10; lf1 04/03 00:13 BP 147 / 97; Pulse 86; Resp 16; Temp 98.4(O); mf4 04/02 19:24 Body Mass Index 32.44 (105.51 kg, 180.34 cm) kb5 MDM: 04/02 20:19 Scrotal, US Ordered. EDMS 20:24 DUPLEX SCAN LIMITED (DOPPLER) Ordered. EDMS 20:29 UA Ordered. EDMS 21:28 GC & Chlamydia Amplification Ordered. EDMS 21:41 Naproxen 500 mg PO once; administer with food or milk ordered. cc10 21:42 Scrotal, US Reviewed. cc10 22:02 UA Reviewed. cc10 22:10 Financial registration complete. gjb 22:24 morphine 4 mg IM once ordered. cc10 22:26 CT ABD & PELVIS: No Contrast Ordered. EDMS 23:06 [facility] [place] Agreement was scanned into [employer] and attached to record. gjb 04/03 12:00 T-Sheet-- Draft Copy was scanned into [employer] and attached to record. gb 12:00 Radiology Report was scanned into [employer] and attached to record. gb Administered Medications: 04/02 21:46 Drug: Naproxen 500 mg [naproxen 250 mg tablet (2 tabs)] Route: PO; nn1 22:32 Drug: morphine 4 mg [morphine 4 mg/mL intravenous cartridge (1 mL)] Route: IM; Site: [facility] left deltoid; Signatures: Dispatcher [employer] EDMS Ada Kidd, Reg Reg Aleshia Cardenas,RN RN rs3 Garland Enamorado,BRAKE MACHINE OPERATOR BRAKE MACHINE OPERATOR mf4 Bhargav Em, PAKrysC PA-C cc10 Angi Li gjLuis Calvillo RN, Nikkole RN nn1 The chart was reviewed and I authenticate all verbal orders and agree with the evaluation and treatment provided.Attachments: 23:06 [facility] Payment Agreement b 04/03 12:00 T-Sheet-- Draft Copy gb Chart Complete MTDD
--- NOTE | 2016-04-05 01:16 | EDDOCDS ---
Nurse's Notes [facility] Name: Luis Prieto Age: 30 yrs Sex: Male : 1985 Arrival Date: 04/02/2016 Time: 20:04 Bed I4 / M4 Private MD: Marcela Harris S Diagnosis: Pelvic and perineal pain-Left sided;Pain in left foot-plantar faciitis Presentation: 04/02 20:12 Presenting complaint: Patient states: Testicular pain for 2 weeks. noticed swelling 4 rs3 days ago. pain getting worse progressively. some relief with heat application. L ankle pain for 2 days. no known injury. Adult Sepsis Screening: The patient does not have new or worsening altered mentation. Patient's respiratory rate is less than 22. Systolic blood pressure is greater than 100. Patient has a qSOFA score of 0- Negative Sepsis Screen. Suicide/Homicide risk assessment- the patient denies having any suicidal and/or homicidal ideations and does not present with any other emotional, behavioral or mental health complaints. 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 Transition of care: patient was not received from another setting of care. 20:12 Acuity: ROGERIO Level 3 rs3 20:12 Method Of Arrival: Walkin/Carried/Asstd rs3 Triage Assessment: 20:16 General: Appears in no apparent distress. Pain: Location: pelvis. Pt Declines HIV rs3 testing. Historical: - Allergies: Tramadol HCl (Headaches); Trazodone (agitated); - Home Meds: 1. Klonopin 0.5 mg Oral tab 1 tab as needed 2. Geodon 20 mg oral cap 1 cap nightly - PMHx: agorophobia; Anxiety; Depression; - PSHx: none; - Social history: Smoking status: Patient states former smoker of tobacco. No barriers to communication noted, The patient speaks fluent [place]oth[place]. - Family history: Not pertinent. - : The pt / caregiver states he / she is not on anticoagulants. Home medication list is obtained from. - Exposure Risk Screening:: None identified. Screenin:52 Screening information is obtained from the patient. Fall risk: No risks identified. lf1 Assistance ADL's: requires no assistance with activities of daily living. Nutritional screening: No deficits noted. Advance Directives: Currently, there is no health care proxy. home support is adequate. 04/03 00:14 Abuse/DV Screen: The patient / caregiver reports he/she is: not in a situation that mf4 causes fear, pain or injury. Assessment: 04/02 21:46 General: Appears in no apparent distress, comfortable, Behavior is appropriate for age, nn1 cooperative. Pain: Location: right lower quadrant and left lower quadrant and pelvis Pain currently is 8 out of 10 on a pain scale. Neurological: Level of Consciousness is awake, alert, obeys commands, Oriented to person, place, time. Respiratory: Airway is patent Respiratory effort is even, unlabored, Respiratory pattern is regular, symmetrical. GI: Reports lower abdominal pain. Derm: Skin is pink, warm & dry. 21:54 General: Urine resent to lab. . nn1 22:52 Adult Sepsis Screening: The patient does not have new or worsening altered mentation. lf1 Patient's respiratory rate is less than 22. Systolic blood pressure is greater than 100. Patient has a qSOFA score of 0- Negative Sepsis Screen. General: Appears uncomfortable, Behavior is cooperative. Pain: Location: left lower quadrant Pain currently is 8 out of 10 on a pain scale. Neurological: Level of Consciousness is awake, alert. Cardiovascular: Chest pain is denied. Respiratory: Respiratory effort is even, unlabored. GI: Reports lower abdominal pain. Derm: Skin is pink, warm & dry. 22:58 General:. lf1 Vital Signs: 19:24 BP 126 / 75; Pulse 96; Resp 18; Temp 98.7(O); Pulse Ox 98% on R/A; Weight 105.51 kg kb5 (M); Height 5 ft. 11 in. (180.34 cm) (R); Pain 9/10; 22:58 BP 131 / 85; Pulse 88; Resp 18; Temp 97.0(O); Pulse Ox 97% on R/A; Pain 8/10; lf1 04/03 00:13 BP 147 / 97; Pulse 86; Resp 16; Temp 98.4(O); mf4 04/02 19:24 Body Mass Index 32.44 (105.51 kg, 180.34 cm) kb5 ED Course: 04/02 20:06 Patient visited by Erik Ku PCA. kb5 20:06 Marcela Harris is Private Physician. kb5 20:06 Patient moved to Waiting kb5 20:09 Patient visited by Erik Ku PCA. kb5 20:14 Triage Initiated rs3 20:16 Patient moved to Pre RCE rs3 20:46 UA Sent. ar3 21:11 Scrotal, US Returned. EDMS 21:16 Patient moved to Triage 1 jmb 21:27 Bhargav Em PA-C is PHCP. cc10 21:27 Emilio Garcia DO is Attending Physician. cc10 21:28 GC & Chlamydia Amplification Sent. jmb 21:34 Patient visited by Bhargav Em PA-C. cc10 21:34 Patient visited by Bhargav Em PA-C. cc10 21:55 Patient moved to TR1 jmb 22:09 Patient moved to PR2 / 26 jmb 22:27 Patient moved to I4 / M4 jmb 22:52 The patient / caregiver is instructed regarding the plan of care and ED course. Patient lf1 has correct armband on for positive identification. Placed in gown. Call light in reach. 22:54 Patient visited by Audelia Thomas,RN. lf1 23:01 Patient visited by Audelia Thomas,RN. lf1 23:06 [facility] Payment Agreement was scanned into [employer] and attached to record. gjb 23:52 Marcela Harris is Referral Physician. cc10 23:55 CT ABD & PELVIS: No Contrast Returned. EDMS 04/03 00:14 No IV's were initiated during this patient's visit. No procedures done that require 4 assistance. 12:00 T-Sheet-- Draft Copy was scanned into [employer] and attached to record. gb 12:00 Radiology Report was scanned into [employer] and attached to record. gb Administered Medications: 04/02 21:46 Drug: Naproxen 500 mg [naproxen 250 mg tablet (2 tabs)] Route: PO; nn1 22:32 Drug: morphine 4 mg [morphine 4 mg/mL intravenous cartridge (1 mL)] Route: IM; Site: [facility] left deltoid; Order Results: Lab Order: UA; SPEC'M 04/02/16 20:46 Test: APPEARANCE, URINE; Value: CLEAR; Range: CLEAR; Status: F Test: COLOR, URINE; Value: YELLOW; Range: YELLOW; Status: F Test: PH,URINE; Value: 6.0; Range: 5.0-9.0; Units: UNITS; Status: F Test: SPECIFIC GRAVITY URINE AUTO; Value: 1.026; Range: 1.002-1.035; Status: F Test: PROTEIN, URINE AUTO; Value: NEGATIVE; Range: NEGATIVE; Units: mg/dL; Status: F Test: GLUCOSE, URINE (UA) AUTO; Value: NEGATIVE; Range: NEGATIVE; Units: mg/dL; Status: F Test: KETONE, URINE AUTO; Value: NEGATIVE; Range: NEGATIVE; Units: mg/dL; Status: F Test: UROBILINOGEN, URINE AUTO; Value: 0.2; Range: 0.0-2.0; Units: mg/dL; Status: F Test: BILIRUBIN, URINE AUTO; Value: NEGATIVE; Range: NEGATIVE; Status: F Test: NITRITE, URINE AUTO; Value: NEGATIVE; Range: NEGATIVE; Status: F Test: LEUKOCYTE ESTERASE, URINE AUTO; Value: NEGATIVE; Range: NEGATIVE; Status: F Test: BLOOD, URINE BLOOD; Value: 1+; Range: NEGATIVE; Abnormal: Above high normal; Status: F Test: WBC, URINE AUTO; Value: 0; Range: 0-3; Units: /HPF; Status: F Test: RBC, URINE AUTO; Value: 2; Range: 0-3; Units: /HPF; Status: F Test: BACTERIA, URINE AUTO; Value: NEGATIVE; Range: NEGATIVE; Status: F Test: SQUAMOUS EPITHELIAL CELL UR AU; Value: 0; Range: 0-6; Units: /HPF; Status: F Test: MUCUS, URINE; Value: SMALL; Range: NEGATIVE; Status: F Test: HYALINE CAST, URINE AUTO; Value: 0; Range: 0-1; Units: /LPF; Status: F Lab Order: GC & Chlamydia Amplification; SPEC'M 04/02/16 20:46 Test: CHLAMYDIA DNA AMPLIFICATION; Value: NEGATIVE; Range: NEGATIVE; Status: F Test: GC DNA AMPLIFICATION; Value: NEGATIVE; Range: NEGATIVE; Status: F Radiology Order: Scrotal, US Test: Scrotal, US REASON FOR EXAMINATION: swelling; ; Clinical history: Pain.; Findings: Real-time ultrasound imaging of the testicles and scrotum was performed. The right testicle; measures 3.9 x 2.4 x 3.2 cm. The left testicle measures 3.9 x 2.5 I 3.1 cm. The testicles demonstrat; e normal echo texture and echogenicity. Normal color Doppler flow and arterial waveforms are seen uday; aterally. No fluid collections are seen.; Impression: Unremarkable ultrasound examination of the testicles.; ; Radiology Order: CT ABD & PELVIS: No Contrast Test: CT ABD & PELVIS: No Contrast REASON FOR EXAMINATION: Renal colic; ; CT of the abdomen and pelvis without contrast; Clinical statement: Pain.; Technique: Multiple axial CT images were obtained from the base of the lungs to the floor of the pelv; is utilizing 5 mm axial slices without administration of contrast. Coronal and sagittal reconstructio; ns were also obtained.; Comparison: 12/09/2012.; Findings:; Chest: The visualized lung bases are clear.; Abdomen: The kidneys are normal in size bilaterally. There is no evidence of hydronephrosis or nephro; lithiasis. The liver, spleen, pancreas, gallbladder and adrenal glands are unremarkable. The aorta de; monstrates normal caliber and contour. There is no abdominal lymphadenopathy or ascites.; Pelvis: The bowel is unremarkable, with no obstructive or inflammatory changes. The appendix is juan; l. The urinary bladder is within normal limits. There is no pelvic lymphadenopathy or ascites. The ot; her pelvic structures appear unremarkable.; Bones: There are no suspicious osseous abnormalities seen.; Impression: Unremarkable CT examination of the abdomen and pelvis.; ; Outcome: 23:52 Discharge ordered by Provider. cc10 04/03 00:14 Discharge Assessment: Patient awake, alert and oriented x 3. No cognitive and/or mf4 functional deficits noted. Patient verbalized understanding of disposition instructions. patient administered narcotics - no. The following High Risk Discharge criteria are identified: None. Discharged to home ambulatory. Condition: stable. Discharge instructions given to patient, Instructed on discharge instructions, follow up and referral plans. medication usage, Demonstrated understanding of instructions, Pt was receptive of discharge instructions/ teaching. Prescriptions given X 1, efiled. CT Study completed. Property sent home with patient. 00:15 Patient left the ED. mf4 Signatures: Dispatcher [employer] EDMS Ada Kidd, Reg Reg gb Kings, Erik, TIMBER APPRAISER TIMBER APPRAISER kb5 Audelia Thomas,RN RN lf1 Annmarie,Aleshia,RN RN rs3 Abhishek Christina, TIMBER APPRAISER TIMBER APPRAISER ar3 Garland Enamorado,PAINTER STRUCTURAL STEEL PAINTER STRUCTURAL STEEL mf4 Luis Ta RN RN jmb Bhargav Em, PA-C PA-C cc10 Layla EvansRN RN nn1 Angi Li Chart Complete MTDD
== END 2016-04-03 00:15 | disposition home or self-care (01) ==
LOC: M ED 20:04
DX: M72.2 Plantar fascial fibromatosis (principal); N50.812 Left testicular pain; F41.9 Anxiety disorder, unspecified; F32.9 Major depressive disorder, single episode, unspecified; F40.00 Agoraphobia, unspecified; Z87.891 Personal history of nicotine dependence; Z79.899 Other long term (current) drug therapy; Z88.5 Allergy status to narcotic agent; Z88.8 Allergy status to other drugs, medicaments and biological substances

== ENCOUNTER → 2016-05-01 | Outpatient (CLI) | payer OTHER ==
--- NOTE | 2016-05-01 10:02 | REP ---
CERVICAL SPINE, EIGHT VIEWS: HISTORY: Neck pain. There is no acute fracture or subluxation. The intervertebral discs are normal in height. The facet joints are normal in appearance. The neural foramina are patent. IMPRESSION: There is no acute fracture or subluxation. Signed by Rex Raymundo MD 05/01/2016 10:24 A
--- NOTE | 2016-05-01 10:06 | REP ---
RIGHT TIBIA/FIBULA FOUR VIEWS: HISTORY: Posterior lump. There is no acute fracture or dislocation. The joint spaces are normal in appearance. Soft tissues are unremarkable. IMPRESSION: There is no acute fracture or dislocation. Signed by Rex Raymundo MD 05/01/2016 10:24 A
[2016-05-01 13:21] LABS: CORTISOL AM 7.4 UG/DL (4.3-22.4)
[2016-05-01 13:38] LABS: ALBUMIN/GLOBULIN RATIO 1.29 (1.00-1.93); ALKALINE PHOSPHATASE 87 U/L (45-117); ALT/SGPT 124 U/L (12-78); ANION GAP 8 MEQ/L (8-16); AST/SGOT 48 U/L (15-37); BASO % 0.4 % (0.0-1.0); BILIRUBIN,TOTAL 0.3 MG/DL (0.2-1.0); BLOOD UREA NITROGEN 14 MG/DL (7-18); CALCIUM LEVEL 9.3 MG/DL (8.5-10.1); CARBON DIOXIDE LEVEL 25 MEQ/L (21-32); CHLORIDE LEVEL 108 MEQ/L (98-107); CHOLESTEROL LEVEL 274 MG/DL (<200); CREATININE FOR GFR 0.88 MG/DL (0.70-1.30); EOS # 0.2 K/mm3 (0.0-0.50); EOS % 2.5 % (0.0-3.0); GLOMERULAR FILTRATION RATE > 60.0 (>60); GLUCOSE, FASTING 93 MG/DL (70-105); LARGE UNSTAINED CELL # 0.2 K/mm3 (0.0-0.4); LARGE UNSTAINED CELL % 2.1 % (0.0-4.0); LYMPH # 2.1 K/mm3 (1.5-6.5); LYMPH % 28.9 % (24.0-44.0); MEAN CORPUSCULAR HEMOGLOBIN 30.4 pg (27.0-33.0); MEAN CORPUSCULAR HGB CONC 33.8 g/dl (32.0-36.5); MEAN CORPUSCULAR VOLUME 90.2 fl (80.0-96.0); MONO # 0.5 K/mm3 (0.0-0.8); NEUTROPHILS # 4.4 K/mm3 (1.8-7.7); PLATELET COUNT, AUTOMATED 285 k/mm3 (150-450); POTASSIUM SERUM 4.2 MEQ/L (3.5-5.1); RED CELL DISTRIBUTION WIDTH 13.3 % (11.5-14.5); SODIUM LEVEL 141 MEQ/L (136-145); TOTAL PROTEIN 7.1 GM/DL (6.4-8.2); TRIGLYCERIDES LEVEL 125 MG/DL (<150); WHITE BLOOD COUNT 7.4 K/mm3 (4.0-10.0)
[2016-05-01 14:18] LABS: ERYTHROCYTE SEDIMENTATION RATE 17 mm/hr (0-15)
== END ==
LOC: M WUC 08:34
PROVIDERS: ATTEND Nurse Practitioner Family
DX: R31.9 Hematuria, unspecified (principal); R63.5 Abnormal weight gain; M25.549 Pain in joints of unspecified hand; Z13.220 Encounter for screening for lipoid disorders; K62.5 Hemorrhage of anus and rectum; M54.2 Cervicalgia; F32.9 Major depressive disorder, single episode, unspecified; R22.9 Localized swelling, mass and lump, unspecified

== ENCOUNTER → 2016-05-02 | Outpatient (REF) | payer OTHER | LOC: M LAB REF 10:47 | PROVIDERS: ATTEND Nurse Practitioner Family | DX: K62.5 Hemorrhage of anus and rectum (principal); R63.5 Abnormal weight gain ==

== ENCOUNTER → 2016-06-27 | Outpatient (CLI) | payer OTHER ==
[2016-06-27 18:08] LABS: ALBUMIN 3.6 GM/DL (3.2-5.2); ALBUMIN/GLOBULIN RATIO 1.16 (1.00-1.93); ALKALINE PHOSPHATASE 88 U/L (45-117); ALT/SGPT 87 U/L (12-78); AST/SGOT 38 U/L (15-37); BILIRUBIN,DIRECT < 0.1 MG/DL (0.0-0.2); BILIRUBIN,TOTAL 0.2 MG/DL (0.2-1.0); CHOLESTEROL LEVEL 227 MG/DL (<200); FREE T4 0.92 NG/DL (0.76-1.46); TOTAL PROTEIN 6.7 GM/DL (6.4-8.2); TRIGLYCERIDES LEVEL 226 MG/DL (<150)
== END ==
LOC: M WUC 11:04
PROVIDERS: ATTEND Nurse Practitioner Family
DX: R79.89 Other specified abnormal findings of blood chemistry (principal); E55.9 Vitamin D deficiency, unspecified; K76.0 Fatty (change of) liver, not elsewhere classified

== ENCOUNTER → 2016-08-07 | Outpatient (CLI) | payer OTHER ==
[2016-08-07 17:46] LABS: BASO % 0.5 % (0.0-1.0); EOS # 0.2 K/mm3 (0.0-0.50); EOS % 2.3 % (0.0-3.0); LARGE UNSTAINED CELL # 0.1 K/mm3 (0.0-0.4); LARGE UNSTAINED CELL % 1.4 % (0.0-4.0); LYMPH # 2.3 K/mm3 (1.5-6.5); LYMPH % 25.4 % (24.0-44.0); MEAN CORPUSCULAR HEMOGLOBIN 31.8 pg (27.0-33.0); MEAN CORPUSCULAR VOLUME 93.7 fl (80.0-96.0); MONO # 0.4 K/mm3 (0.0-0.8); MONO % 4.9 % (0.0-5.0); NEUTROPHILS % 65.6 % (36.0-66.0); PLATELET COUNT, AUTOMATED 298 k/mm3 (150-450); RED CELL DISTRIBUTION WIDTH 13.4 % (11.5-14.5); WHITE BLOOD COUNT 9.1 K/mm3 (4.0-10.0)
== END ==
LOC: M WUC 11:48
PROVIDERS: ATTEND Family Medicine Addiction Medicine
DX: N52.8 Other male erectile dysfunction (principal)

== ENCOUNTER 2017-05-26 09:49 | Emergency (ER) | payer OTHER, MEDICAID ==
[2017-05-26 10:28] LABS: BASO % 0.4 % (0.0-1.0); EOS # 0.3 10^3/uL (0.0-0.50); EOS % 3.7 % (0.0-3.0); HEMATOCRIT 41.9 % (42.0-52.0); HEMOGLOBIN 14.7 g/dl (13.5-17.5); IMMATURE GRANULOCYTE % 0.6 % (0-3.0); LYMPH # 2.6 10^3/uL (1.5-6.5); LYMPH % 33.3 % (24.0-44.0); MEAN CORPUSCULAR HEMOGLOBIN 31.2 pg (27.0-33.0); MEAN CORPUSCULAR HGB CONC 35.1 g/dl (32.0-36.5); MONO # 0.6 10^3/uL (0.0-0.8); MONO % 7.4 % (0.0-5.0); NEUTROPHILS # 4.3 10^3/uL (1.8-7.7); NEUTROPHILS % 54.6 % (36.0-66.0); PLATELET COUNT, AUTOMATED 246 10^3/uL (150-450); RED BLOOD COUNT 4.71 10^6/uL (4.30-6.10); RED CELL DISTRIBUTION WIDTH 13.5 % (11.5-14.5); WHITE BLOOD COUNT 7.9 10^3/uL (4.0-10.0)
[2017-05-26 10:58] LABS: ALBUMIN 3.8 GM/DL (3.2-5.2); ALBUMIN/GLOBULIN RATIO 1.12 (1.00-1.93); ALKALINE PHOSPHATASE 80 U/L (45-117); ALT/SGPT 61 U/L (12-78); ANION GAP 7 MEQ/L (8-16); AST/SGOT 30 U/L (7-37); BILIRUBIN,TOTAL 0.2 MG/DL (0.2-1.0); BLOOD UREA NITROGEN 12 MG/DL (7-18); CALCIUM LEVEL 9.1 MG/DL (8.5-10.1); CARBON DIOXIDE LEVEL 28 MEQ/L (21-32); CHLORIDE LEVEL 109 MEQ/L (98-107); CREATININE FOR GFR 0.79 MG/DL (0.70-1.30); GLOMERULAR FILTRATION RATE > 60.0 (>60); GLUCOSE, FASTING 98 MG/DL (70-100); POTASSIUM SERUM 3.9 MEQ/L (3.5-5.1); SODIUM LEVEL 144 MEQ/L (136-145); TOTAL PROTEIN 7.2 GM/DL (6.4-8.2)
[2017-05-26] MEDS ORDERED: ISOVUE-370 76% 100ML VIAL (Q9967) As Ordered (10:58)
[2017-05-26 11:09] LABS: AMORPHOUS SEDIMENT RFX SMALL (NEGATIVE); KETONE, URINE AUTO RFX NEGATIVE (NEGATIVE); LEUKOCYTE ESTERASE UR AUTO RFX NEGATIVE (NEGATIVE); MUCUS, URINE RFX SMALL (NEGATIVE); NITRITE, URINE AUTO RFX NEGATIVE (NEGATIVE); RBC, URINE AUTO RFX 1 /HPF (0-3); SPECIFIC GRAVITY UR AUTO RFX 1.015 (1.002-1.035); SQUAM EPITHELIAL CELL UR AURFX 0 /HPF (0-6); WBC, URINE AUTO RFX 0 /HPF (0-3)
== END 2017-05-26 12:07 | disposition home or self-care (01) ==
LOC: M ED 09:49
DX: S30.1XXA Contusion of abdominal wall, initial encounter (principal); F17.210 Nicotine dependence, cigarettes, uncomplicated; W18.39XA Other fall on same level, initial encounter; Y92.039 Unspecified place in apartment as the place of occurrence of the external cause; F40.00 Agoraphobia, unspecified; Z88.5 Allergy status to narcotic agent; Z79.899 Other long term (current) drug therapy
CPT/HCPCS: Q9967

== ENCOUNTER 2017-06-01 08:14 | Emergency (ER) | payer OTHER ==
[2017-06-01] MEDS: MECLIZINE 25 MG TABLET PO (08:51)
[2017-06-01] MEDS: IBUPROFEN 800 MG TAB PO (09:05)
== END 2017-06-01 09:27 | disposition home or self-care (01) ==
LOC: M ED 08:14
DX: H81.10 Benign paroxysmal vertigo, unspecified ear (principal); R51 Headache; F40.01 Agoraphobia with panic disorder; K21.9 Gastro-esophageal reflux disease without esophagitis; F33.9 Major depressive disorder, recurrent, unspecified; N52.9 Male erectile dysfunction, unspecified; F17.200 Nicotine dependence, unspecified, uncomplicated; Z88.8 Allergy status to other drugs, medicaments and biological substances; Z88.5 Allergy status to narcotic agent; Z79.899 Other long term (current) drug therapy
CPT/HCPCS: 70450

== ENCOUNTER 2017-08-23 12:08 | Emergency (ER) | payer OTHER | END 2017-08-23 13:49 | disposition home or self-care (01) | LOC: M ED 12:08 | DX: R59.9 Enlarged lymph nodes, unspecified (principal); K21.9 Gastro-esophageal reflux disease without esophagitis; F99 Mental disorder, not otherwise specified; F17.210 Nicotine dependence, cigarettes, uncomplicated; Z88.8 Allergy status to other drugs, medicaments and biological substances; Z88.5 Allergy status to narcotic agent; Z79.899 Other long term (current) drug therapy | CPT/HCPCS: 70480 ==

== ENCOUNTER 2017-10-02 13:16 | Emergency (ER) | payer OTHER | END 2017-10-02 15:15 | disposition left against medical advice (07) | LOC: M ED 13:16 | DX: Z53.21 Procedure and treatment not carried out due to patient leaving prior to being seen by health care provider (principal) ==

== ENCOUNTER 2019-07-25 04:49 | Emergency (ER) | payer MEDICAID, OTHER ==
[~2019-07-25] VITALS: Ht 180.3 cm; Wt 112.3 kg
[~2019-07-25 04:49] MED LIST changes: +ABIL1TAB12; +ACET-683 PO; +ALPR0.25 PO; +ARIP1TAB44 PO; +BUSP10TA PO; +BUSP30TA PO; +GEOD40CA13 PO; +IBUP-1022 PO; +MECL1TAB31 PO; +NICO21DI31; -OLAN2.5T PO; +OLAN2.5T25 PO; +PARO40TA2 PO; +PAXI20TA29 PO; -PAXI20TA3 PO; +PAXI40TA10 PO; +TRAZ-257 PO; -TRAZ100T4 PO; +XANA0.5T PO
[2019-07-25 04:50] VITALS: BP 134/85
[2019-07-25] MEDS ORDERED: BUSP15TA47 (04:59)
[2019-07-25] MEDS ORDERED: HYDR-643 (04:59)
== END 2019-07-25 05:41 | disposition home or self-care (01) ==
LOC: M ED 04:49
DX: F41.1 Generalized anxiety disorder (principal); N50.9 Disorder of male genital organs, unspecified

== ENCOUNTER 2019-11-23 04:41 | Emergency (ER) | payer MEDICAID, OTHER ==
[~2019-11-23] VITALS: Ht 180.3 cm; Wt 97.7 kg
[~2019-11-23 04:41] MED LIST changes: +BUSP15TA47; +HYDR-643
[2019-11-23 05:38] VITALS: BP 122/68
[2019-11-23] MEDS ORDERED: LIDOCAINE 1% MDV 20ML VIAL SC ONE (06:15)
== END 2019-11-23 06:21 | disposition home or self-care (01) ==
LOC: M ED 04:41
DX: K64.5 Perianal venous thrombosis (principal); Z87.891 Personal history of nicotine dependence; Z88.6 Allergy status to analgesic agent

== ENCOUNTER 2019-11-25 04:59 | Emergency (ER) | payer OTHER ==
[~2019-11-25] VITALS: Ht 180.3 cm; Wt 100.0 kg
[2019-11-25 05:00] VITALS: BP 119/70
== END 2019-11-25 06:48 | disposition left against medical advice (07) ==
LOC: M ED 04:59
DX: Z53.21 Procedure and treatment not carried out due to patient leaving prior to being seen by health care provider (principal)

== ENCOUNTER 2023-02-14 15:34 | Inpatient (IN) | payer MEDICAID, MEDICARE, OTHER ==
[~2023-02-14] VITALS: Ht 180.3 cm; Wt 95.1 kg
[~2023-02-14 15:34] MED LIST changes: +MECL-209 PO; -MECL1TAB31 PO; +NICO1DIS12; -NICO21DI31; -PAXI20TA29 PO; +PAXI20TA30 PO; -PAXI40TA10 PO; +PAXI40TA12 PO
[2023-02-14] MEDS ORDERED: ESCITALOPRAM (15:44)
[2023-02-14] MEDS ORDERED: LORAPOW30 (15:44)
[2023-02-14 16:59] LABS: HEMATOCRIT 46.4 % (42.0-52.0); HEMOGLOBIN 16.3 g/dl (13.5-17.5); MEAN CORPUSCULAR HEMOGLOBIN 30.6 pg (27.0-33.0); MEAN CORPUSCULAR HGB CONC 35.1 g/dl (32.0-36.5); MEAN CORPUSCULAR VOLUME 87.2 fl (80.0-96.0); PLATELET COUNT, AUTOMATED 306 10^3/uL (150-450); RED BLOOD COUNT 5.32 10^6/uL (4.30-6.10); WHITE BLOOD COUNT 9.6 10^3/uL (4.0-10.0)
[2023-02-14 17:23] LABS: AMPHETAMINES LEVEL URINE NEGATIVE (NEGATIVE); BARBITURATES URINE NEGATIVE (NEGATIVE); BENZODIAZEPINES URINE NEGATIVE (NEGATIVE); COCAINE METABOLITE URINE NEGATIVE (NEGATIVE); METHADONE URINE NEGATIVE (NEGATIVE); OPIATES URINE NEGATIVE (NEGATIVE); PHENCYCLIDINE URINE NEGATIVE (NEGATIVE)
[2023-02-14 17:24] LABS: ETHYL ALCOHOL (ETHANOL) < 0.003 % (0.000-0.010)
[2023-02-14 17:26] LABS: ALBUMIN 4.3 G/DL (3.2-5.2); ALKALINE PHOSPHATASE 84 U/L (46-116); ALT/SGPT 74 U/L (7.0-40); AST/SGOT 17 U/L (<34); BILIRUBIN,DIRECT 0.2 MG/DL (<0.4); BILIRUBIN,TOTAL 0.3 MG/DL (0.3-1.2); BLOOD UREA NITROGEN 15 MG/DL (9-23); CALCIUM LEVEL 9.1 MG/DL (8.5-10.1); CANNABINOIDS URINE POSITIVE (NEGATIVE); CARBON DIOXIDE LEVEL 26 MMOL/L (20-31); CHLORIDE LEVEL 108 MMOL/L (98-107); GLOMERULAR FILTRATION RATE > 60.0 (>60); GLUCOSE, FASTING 97 MG/DL (60-100); POTASSIUM SERUM 4.2 MMOL/L (3.5-5.1); SALICYLATE LEVEL < 3.0 MG/DL (<30); SODIUM LEVEL 141 MMOL/L (136-145); TOTAL PROTEIN 7.3 G/DL (5.7-8.2)
[2023-02-14 17:28] LABS: THYROID STIMULATING HORMONE 1.318 uIU/ML (0.55-4.78)
[2023-02-14] MEDS ORDERED: MOM 30ML SUSPENSION UDC PO PRN (20:10)
[2023-02-14] MEDS ORDERED: diphenhydrAMINE 25MG CAP PO PRN (20:10)
[2023-02-14] MEDS ORDERED: MAALOX 30 ML SUSP *UDC PO PRN (20:10)
[2023-02-14] MEDS ORDERED: IBUPROFEN 400MG TAB PO PRN (20:10)
[2023-02-14] MEDS ORDERED: ACETAMINOPHEN TAB 650MG DOSE (2X325MG) PO PRN (20:10)
[2023-02-14] MEDS ORDERED: LEXA1TAB PO (21:03)
[2023-02-14] MEDS ORDERED: ATIV1TAB10 PO (21:03)
[2023-02-14] MEDS ORDERED: med rec comment (21:04)
[2023-02-14] MEDS ORDERED: HOME MED LIST COMPLETE! XX SCH (21:05)
[2023-02-15 06:32] VITALS: BP 128/68; TEMP 98; O2SAT 96
[2023-02-15] MEDS: ESCITALOPRAM OXALATE 10 MG TAB (LEXAPRO) PO SCH ×2 (09:43→11:22)
[2023-02-15] MEDS: LORazepam 0.5 MG TAB PO PRN (11:25)
[2023-02-15 16:29] VITALS: BP 140/70; TEMP 98.9; O2SAT 94
[2023-02-16] MEDS: LORazepam 0.5 MG TAB PO PRN ×2 (04:57→20:43)
[2023-02-16 06:30] VITALS: BP 133/72; TEMP 97.3; O2SAT 98
[2023-02-16] MEDS: ESCITALOPRAM OXALATE 10 MG TAB (LEXAPRO) PO SCH (10:21)
[2023-02-17] MEDS: ESCITALOPRAM OXALATE 10 MG TAB (LEXAPRO) PO SCH (08:03)
[2023-02-17 15:27] VITALS: BP 123/70; TEMP 98; O2SAT 96
[2023-02-18 06:53] VITALS: BP 146/90; TEMP 97.8; O2SAT 98
[2023-02-18] MEDS: ESCITALOPRAM OXALATE 10 MG TAB (LEXAPRO) PO SCH (08:59)
[2023-02-18] MEDS ORDERED: INFLUENZA QUADRIVALENT PF VACCINE 0.5ML SYRINGE IM.IMMUN ONE (11:00)
== END 2023-02-18 16:12 | disposition home or self-care (01) | DRG 754 ==
LOC: M ED 15:34 → M ED INP 20:09 → M PSY 23:25
PROVIDERS: ADMIT Student in an Organized Health Care Education/Training Program; ATTEND Student in an Organized Health Care Education/Training Program
DX: F32.A Depression, unspecified (principal); R45.851 Suicidal ideations; F41.1 Generalized anxiety disorder; Z88.8 Allergy status to other drugs, medicaments and biological substances; F17.200 Nicotine dependence, unspecified, uncomplicated; F12.90 Cannabis use, unspecified, uncomplicated

== ENCOUNTER → 2023-08-15 | Outpatient (CLI) | payer MEDICARE, MEDICAID ==
[~2023-08-15] MED LIST changes: +ATIV1TAB10 PO; +DOXY-323 PO; +ESCITALOPRAM; +LEXA1TAB PO; +LORAPOW30; +PRAZ1CAP PO; +TRAZ-252 PO; +med rec comment
[2023-08-15 14:54] LABS: BASO % 0.6 % (0.0-1.0); EOS # 0.2 10^3/uL (0.0-0.5); EOS % 2.9 % (0.0-3.0); HEMATOCRIT 44.7 % (42.0-52.0); HEMOGLOBIN 15.7 g/dl (13.5-17.5); LYMPH # 2.5 10^3/uL (1.5-5.0); LYMPH % 34.9 % (24.0-44.0); MEAN CORPUSCULAR HEMOGLOBIN 30.8 pg (27.0-33.0); MEAN CORPUSCULAR HGB CONC 35.1 g/dl (32.0-36.5); MEAN CORPUSCULAR VOLUME 87.8 fl (80.0-96.0); MONO # 0.3 10^3/uL (0.0-0.8); MONO % 4.7 % (2.0-8.0); NEUTROPHILS # 4.1 10^3/uL (1.5-8.5); NEUTROPHILS % 56.8 % (36.0-66.0); PLATELET COUNT, AUTOMATED 253 10^3/uL (150-450); RED BLOOD COUNT 5.09 10^6/uL (4.30-6.10); WHITE BLOOD COUNT 7.2 10^3/uL (4.0-10.0)
[2023-08-15 15:13] LABS: ALBUMIN 4.1 G/DL (3.2-5.2); ALKALINE PHOSPHATASE 81 U/L (46-116); ALT/SGPT 41 U/L (7.0-40); AST/SGOT 19 U/L (<34); BILIRUBIN,TOTAL 0.3 MG/DL (0.3-1.2); BLOOD UREA NITROGEN 17 MG/DL (9-23); CALCIUM LEVEL 9.3 MG/DL (8.5-10.1); CARBON DIOXIDE LEVEL 27 MMOL/L (20-31); CHLORIDE LEVEL 108 MMOL/L (98-107); CREATININE FOR GFR 0.79 MG/DL (0.70-1.30); GLOMERULAR FILTRATION RATE > 60.0 (>60); GLUCOSE, FASTING 95 MG/DL (60-100); POTASSIUM SERUM 4.3 MMOL/L (3.5-5.1); SODIUM LEVEL 141 MMOL/L (136-145); TOTAL PROTEIN 6.8 G/DL (5.7-8.2)
[2023-08-15 15:16] LABS: THYROID STIMULATING HORMONE 3.402 uIU/ML (0.55-4.78)
== END ==
LOC: M LAB 13:55
PROVIDERS: ATTEND Psychiatry & Neurology Psychiatry
DX: R53.83 Other fatigue (principal)

== ENCOUNTER 2023-08-18 14:45 | Emergency (ER) | payer MEDICARE, MEDICAID ==
[~2023-08-18] VITALS: Ht 180.3 cm; Wt 95.8 kg
[~2023-08-18 14:45] MED LIST changes: -DOXY-323 PO; -PRAZ1CAP PO; -TRAZ-252 PO
[2023-08-18] MEDS ORDERED: TRAZ-252 PO (14:57)
[2023-08-18] MEDS ORDERED: PRAZ1CAP PO (14:57)
[2023-08-18] MEDS ORDERED: DOXY-323 PO (15:30)
[2023-08-18 15:56] VITALS: BP 119/66; TEMP 98.1; O2SAT 100
== END 2023-08-18 15:57 | disposition home or self-care (01) ==
LOC: M ED 14:45
DX: D23.4 Other benign neoplasm of skin of scalp and neck (principal); F41.9 Anxiety disorder, unspecified; F32.A Depression, unspecified; F40.00 Agoraphobia, unspecified; Z88.5 Allergy status to narcotic agent; Z79.83 Long term (current) use of bisphosphonates; Z79.899 Other long term (current) drug therapy

== ENCOUNTER → 2023-08-30 | Outpatient (REF) | payer MEDICARE, MEDICAID ==
[~2023-08-30] MED LIST changes: +DOXY-323 PO; +PRAZ1CAP PO; +TRAZ-252 PO
== END ==
LOC: M SFHCDERM 17:25
PROVIDERS: ATTEND Physician Assistant
DX: D22.4 Melanocytic nevi of scalp and neck (principal)

== ENCOUNTER 2023-10-08 11:41 | Emergency (ER) | payer MEDICARE, MEDICAID ==
[~2023-10-08] VITALS: Ht 180.3 cm; Wt 96.5 kg
[2023-10-08] MEDS ORDERED: CEPH500C PO (13:27)
[2023-10-08 13:42] VITALS: BP 132/80; TEMP 97.9; O2SAT 98
== END 2023-10-08 13:49 | disposition home or self-care (01) ==
LOC: M ED 11:41
DX: L73.9 Follicular disorder, unspecified (principal); H00.011 Hordeolum externum right upper eyelid; K21.9 Gastro-esophageal reflux disease without esophagitis; F43.10 Post-traumatic stress disorder, unspecified; F40.00 Agoraphobia, unspecified; Z88.5 Allergy status to narcotic agent; Z79.2 Long term (current) use of antibiotics; Z79.899 Other long term (current) drug therapy; Z87.442 Personal history of urinary calculi